=== PATIENT | male | born 1975 | race Caucasian/White ===

== ENCOUNTER 2021-02-11 10:41 | Emergency (ER) | payer SELFPAY ==
[~2021-02-11] VITALS: Ht 188 cm; Wt 109.1 kg
[~2021-02-11 10:41] MED LIST: ANTIVERT 25MG25 MG PO; ZANAFLEX 4MG TAB4 MG PO
[2021-02-11 10:51] VITALS: TEMP 98.7
[2021-02-11] MEDS ORDERED: ZOLOFT 100MG100 MG PO (11:45)
[2021-02-11] MEDS ORDERED: INGREZZA80 MG (11:46)
[2021-02-11 12:33] LABS: BASO % 0.2 % (0.0-2.0); EOS # 0.5 (0.0-0.7); EOS % 4.9 % (0-4.0); GRAN % 68.6 % (42.2-75.2); HEMATOCRIT 49.6 % (42.0-52.0); HEMOGLOBIN 16.9 g/dl (13.5-18.0); LYMPH % 19.7 % (20.0-51.0); MEAN CELL VOLUME 85 fl (80.0-100.0); MEAN CORPUSCULAR HEMOGLOBIN 29 pg (27.0-31.0); MEAN CORPUSCULAR HGB CONC 34 g/dl (33.0-37.0); MEAN PLATELET VOLUME 9.8 fl (7.4-10.4); MONO # 0.6 (0.1-0.6); PLATELET COUNT 191 K/mm3 (130-400); RED BLOOD COUNT 5.86 M/mm3 (4.20-5.60); REDCELL DISTRIBUTION WIDTH-CV 13.2 % (11.5-14.5)
[2021-02-11 12:43] LABS: ALBUMIN 4.8 gm/dL (3.5-5.0); BILIRUBIN,TOTAL 0.6 mg/dL (0.0-1.0); CALCIUM 9.9 mg/dL (8.4-10.2); CREATININE, serum 0.91 (0.66-1.25); POTASSIUM 4.2 mmol/L (3.4-5.0); TOTAL PROTEIN 7.9 gm/dL (6.4-8.2)
[2021-02-11] MEDS ORDERED: ZOFRAN 4MG T4 MG/TAB PO (12:48)
[2021-02-11] MEDS ORDERED: PROTONIX 40MG T40 MG PO (12:48)
[2021-02-11 12:55] VITALS: BP 128/75; PULSE 79
== END 2021-02-11 12:58 | disposition home or self-care (01) ==
LOC: COL.ER 10:41
PROVIDERS: Nurse Practitioner Primary Care
DX: R07.81 Pleurodynia (principal); K29.70 Gastritis, unspecified, without bleeding; F17.200 Nicotine dependence, unspecified, uncomplicated; Z87.19 Personal history of other diseases of the digestive system
CPT/HCPCS: C9113